=== PATIENT | female | born 1975 | race Hispanic/Latino ===

== ENCOUNTER 2019-12-28 00:09 | Emergency (ER) | payer BC ==
[~2019-12-28] VITALS: Ht 157.5 cm; Wt 81.6 kg
--- OUTSIDE RECORDS SUMMARY | 2019-12-28 00:11 | XMS REPORT | Clinical Summary ---
Author Author [facility] Address Unknown Phone Unavailable Care Team Providers Care Podiatry Doctor Name Role Phone Myah Hinson MD PCP Allergies Comments Active Allergy Reactions Severity Noted Date No Known Drug Allergies 01/05/2016 Medications End Date Status Medication Sig Dispensed Refills Start Date Active tiZANidine (ZANAFLEX) 2 TK 1 T PO TID 0 MG tablet FOR 14 DAYS 7 PRN Active traMADol-acetaminophen TK 1 T PO 0 01 (ULTRACET) 37.5-325 mg ONCE D PRN 7 per tablet Active metFORMIN (GLUCOPHAGE) Take 2 360 tablet 0 500 mg tabletIndications: tablets 7 PCOS (polycystic ovarian (1,000 mg syndrome) total) by mouth 2 (two) times a day. Active liraglutide (VICTOZA Inject 0.2 mL 6 pen 3 2-TOOTIE) 0.6 mg/0.1 mL (18 (1.2 mg 7 mg/3 mL) pen total) under injectorIndications: the skin Prediabetes daily. Active metFORMIN (GLUCOPHAGE) TAKE 2 360 tablet 0 500 mg tablet TABLETS BY 8 MOUTH TWICE DAILY Active Problems Problem Noted Date Prediabetes 03/20/2017 PCOS (polycystic ovarian syndrome) 03/20/2017 Vitamin D deficiency 03/20/2017 Back pain 03/20/2017 Cauda equina syndrome 03/20/2017 Osteoporosis 03/20/2017 Osteopenia 03/20/2017 Family History Medical History Relation Name Comments Ankylosing spondylitis Brother Diabetes Brother Diabetes Father Rheum arthritis Father Relation Name Status Comments Brother Father Alive Mother Alive Social History Date Tobacco Use Types Packs/Day Years Used Never Smoker Drinks/Week oz/Week Comments Alcohol Use occasional Yes Sex Assigned at Date Recorded Not on file Industry Job Start Date Occupation Not on file Not on file Not on file Travel End Travel History Travel Start No recent travel history available. Last Filed Vital Signs Not on file Plan of Treatment Health Maintenance Due Date Last Done Comments CERVICAL CANCER SCREENING 1995 INFLUENZA VACCINE 03/05/2020 Results Not on fileafter 12/27/2018 Insurance Type Payer Benefit Subscriber ID Effective Phone Address Plan / Dates Group HMO/PPO [facility] xxxxxxxxx [id number] THCARE resent CHOICE/CHO ICE + Advance Directives For more information, please contact: [phone] Patient Curing Press Maintainer Explanation Type Date Recorded Advance Directives, Living Will and Medical Power of Trim Operator
--- OUTSIDE RECORDS SUMMARY | 2019-12-28 00:11 | XMS REPORT | Continuity of Care Document ---
Author Author [employer]EDERICK [employer] Address Unknown Phone Unavailable Care Team Providers Care Licensing Officer Name Role Phone [employer] Unavailable Un available Problems Problem Status Onset Date Classification Date Reported Comments Source ROUTINE MAMMOGRAM//OSTEOPOROSIS SCREENIN Active 01/22/2019 [facility] Headache 11/27/2018 [facility] HTN Active 1 [facility] SCREENING Active 04/03/2017 [facility] M47.22 Active 02/26/2017 [facility] M54.5 Active 12/13/2015 [facility] UTERINE FIBROID Active 08/31/2014 [facility] PCOS (polycystic ovarian syndrome) Active Problem eCW: [facility] Alopecia areata Active Problem 04/22/2019 eCW: [facility] Lumbago Active Problem 04/22/2019 eCW: [facility] Body mass index 30.0-30.9, adult Active Problem eCW: [facility] Pain in right foot Active Diagnosis 03/21/2018 eCW: [facility] Obesity (BMI 30.0-34.9) Active Diagnosis 04/22/2019 eCW: [facility] Pain of left foot Active Diagnosis 03/21/2018 eCW: [facility] Eczema, unspecified type Active Diagnosis 03/05/2018 eCW: [facility] Body mass index 32.0-32.9, adult Active Problem eCW: [facility] Type 2 diabetes mellitus without complic ation, without long-term current use of insulin Active Problem 04/22/2019 eCW: [facility] Thoracic radiculopathy due to degenerati ve joint disease of spine Active Prob serina 04/22/2019 eCW: [facility] Amenorrhea Active Problem 04/22/2019 eCW: [facility] Cervical radiculopathy due to degenerati ve joint disease of spine Active Prob serina 04/22/2019 eCW: [facility] Metabolic syndrome Active Problem 04/22/2019 eCW: [facility] Insulin resistance Active Problem 04/22/2019 eCW: [facility] Body mass index 31.0-31.9, adult Active Problem eCW: [facility] Wellness examination Active Diagnosis 04/22/2019 eCW: [facility] Allergic rhinitis, cause unspecified Active Problem eCW: [facility] hypertriglyceridemia Active Problem 12/21/2015 eCW: [facility] Hypertension Active Problem 12/21/2015 eCW: [facility] lymphadenopathy Active Problem 12/21/2015 eCW: [facility] Constipation Active Problem 12/21/2015 eCW: [facility] hepatatis A Active Problem 12/21/2015 eCW: [facility] Abnormal liver enzymes Active Problem 12/21/2015 eCW: [facility] Overweight Active Problem 12/21/2015 eCW: [facility] hypercholesterolemia Active Problem 12/21/2015 eCW: [facility] Irregular menstrual cycle Acti ve Problem eCW: [facility] BMI 30.0-30.9,adult Active Problem 12/21/2015 eCW: [facility] Hypokalemia Active Problem 04/22/2019 eCW: [facility] Post-menopausal Active Problem 04/22/2019 eCW: [facility] Essential (primary) hypertension Active Problem [facility],eCW: [facility] Palpitation Active Problem 04/22/2019 eCW: [facility] Hospital discharge follow-up A ctive Diagnosis 1 eCW: [facility] Obesity Active Problem 12/21/2015 eCW: [facility] Body mass index 33.0-33.9, adult Active Diagnosis 0 04/22/2019 eCW: [facility] Cervicalgia 11/27/2018 [facility] Dorsalgia, unspecified 11/27/2018 [facility] Anxiety disorder, unspecified 11/27/2018 [facility] LOW BACK PAIN Active [facility] ENCNTR SCREEN MAMMOGRAM FOR MALIGNANT NE Active [facility] ASYMPTOMATIC MENOPAUSAL STATE Active [facility] Medications Medication Details Route Status Patient Instructions Ordering Provider Order Date Source Hydrochlorothiazide 12.5 MG / Lisinopril 10 MG Oral Tablet 1 tab, PO, Daily, # 30 tab, 0 Refill(s) Active 05/10/2018 [facility] Ketorolac 30 mg, Route: IVP, D rug form: INJ, ONCE, Dosing Weight 77.727, kg, Priority: STAT, Start date: 05/10/18 14:53:00 CDT, Stop date: 05/10/18 14:53:00 CDT Inactive 05/10/2018 [facility] Benadryl 25 mg, Route: IVP, ON CE, Dosing Weight 77.727, kg, Priority: STAT, Start date: 05/10/18 14:53:00 CDT, Stop date: 05/10/18 14:53:00 CDT Inactive 05/10/2018 [facility] Acetaminophen 975 mg, Route: P O, Drug form: TAB, ONCE, Dosing Weight 77.727, kg, Priority: STAT, Start date: 05/10/18 13:41:00 CDT, Stop date: 05/10/18 13:41:00 CDT Inactive 05/10/2018 [facility] Clonidine Hydrochloride 0.1 MG Oral Tablet 0.1 mg, Route: PO, Drug form: TAB, ONCE, Dosing Weight 77.727, kg, Priority: STAT, Start date: 05/10/18 13:41:00 CDT, Stop date: 05/10/18 13:41:00 CDT Inactive 05/10/2018 [facility] Clobetasol Propionate 1 applic ation to affected area Externally Active 0.05 % Externally Twice a day [facility] 03/03/2018 eCW: [facility] Tizanidine HCl 1 tablet as nee ded Orally Active 2 MG Orally Three times a day [facility] [place] 02/20/2017 eCW: [facility] Medrol (Sean) as directed Orally Active 4 MG Orally as directed in pack [facility] [place] 02/20/2017 eCW: [facility] Tramadol-Acetaminophen 1 table ts as needed Orally Active 37.5-325 MG Orally once a day [facility] [place] 02/20/2017 eCW: [facility] Etodolac 1 tablet Orally Active 400 MG Orally Once a da y, prn pain [facility] [place] 12/13/2015 eCW: [facility] Tizanidine HCl 1 tablet as nee ded Orally Active 2 MG Orally qhs [facility] [place] 12/13/2015 eCW: [facility] Medrol (Sean) as directed Orally Active 4 MG Orally as directed in pack [facility] [place] 12/13/2015 eCW: [facility] Keflex 1 capsule Orally Active 500 MG Orally Twice a d ay [facility] [place] 02/01/2015 eCW: [facility] Flonase 1 spray in each nostril Nasally Active 50 MCG/ACT Nasally Once a day [facility] 07/20/2013 eCW: [facility] Flonase 1 spray in each nostril Nasally Active 50 MCG/ACT Nasally Once a day [facility] [place] 07/20/2013 eCW: [facility] Vitamin D-3 1 capsule Orally Active 1000 UNIT Orally Once a day [place] eCW: [facility] Metformin HCl 1 tablet with me als Orally Active 1000 MG Orally Twice a day [facility] eCW: [facility] Vitamin D-3 1 capsule Orally Active 1000 UNIT Orally Once a day [facility] [place] eCW: [facility] Metformin HCl 1 tablet with me als Orally Active 1000 MG Orally Twice a day [facility] [place] eCW: [facility] Lisinopril-Hydrochlorothiazide 1 tablet Orally Active 10-12.5 MG Orally Once a day [facility] eCW: [facility] Aspir-81 1 tablet Orally Active 81 MG Orally Once a day [facility] eCW: [facility] Losartan Potassium-HCTZ 1 tabl et Orally Active 50-12.5 MG Orally Once a day [facility] eCW: [facility] Allergies, Adverse Reactions, Alerts Substance Category Reaction Severity Reaction type Status Date Reported Comments Source N.K.D.A. Adverse Reaction Info Not Available Adverse Reaction 04/20/2019 eCW: [facility] No Known Medication Allergies Assertion [facility] [place] Immunizations No Data Provided for This Section Results Order Name Results Value Reference Range Date Interpretation Comments Source ELECTROLYTES AGAP 15.4 10.0 - 20.0 05/10/2018 [facility] ELECTROLYTES eGFR 90 05/10/2018 Result Comment: The eGFR is calculated using the CKD-EPI formula. In most young, healthy individuals the eGFR will be >90 mL/min/1.73m2. The eGFR declines with age. An eGFR of 60-89 may be normal in some populations, particularly the elderly, for whom the CKD-EPI formula has not been extensively validated. Use of the eGFR is not recommended in the following populations:

Individuals with unstable creatinine concentrations, including patients and those with serious co-morbid conditions.

Patients with extremes in muscle mass or diet.

The data above are obtained from the National Kidney Disease Education Program (NKDEP) which additionally recommends that when the eGFR is used in patients with extremes of body mass index for purposes of drug dosing, the eGFR should be multiplied by the estimated BMI. [facility] ELECTROLYTES Creatinine Lvl 0.8 0 0.50 - 1.40 05/10/2018 [facility] ELECTROLYTES Calcium Lvl 9.6 8.5 - 10.5 05/10/2018 [facility] ELECTROLYTES Sodium Lvl 142 135 - 145 05/10/2018 [facility] ELECTROLYTES CO2 24 24 - 32 05/10/2018 [facility] ELECTROLYTES Chloride Lvl 106 95 - 109 05/10/2018 [facility] ELECTROLYTES Potassium Lvl 3.4 3.5 - 5.1 05/10/2018 [facility] ELECTROLYTES BUN 10 7 - 22 05/10/2018 [facility] ELECTROLYTES Glucose Lvl 156 70 - 99 05/10/2018 [facility] HEMATOLOGY MCH 28.6 27.0 - 31.0 05/10/2018 [facility] HEMATOLOGY RDW 13.4 11.5 - 14.5 05/10/2018 [facility] HEMATOLOGY MCHC 34.6 32.0 - 36.0 05/10/2018 [facility] HEMATOLOGY MPV 11.1 7.4 - 10.4 05/10/2018 [facility] HEMATOLOGY Platelet 220 133 - 450 05/10/2018 [facility] HEMATOLOGY RBC 5.23 4.20 - 5.40 05/10/2018 [facility] HEMATOLOGY Hgb 14.9 12.0 - 16.0 05/10/2018 [facility] HEMATOLOGY MCV 82.6 80.0 - 98.0 05/10/2018 [facility] HEMATOLOGY Hct 43.2 36.0 - 48.0 05/10/2018 [facility] HEMATOLOGY WBC 6.6 3.7 - 10.4 05/10/2018 [facility] Pathology Reports No Data Provided for This Section Diagnostic Reports Report Value Date Source Upper GI series DX Upper GI Se margot: 08/24/2019 8:28 [employer]ICE DISP[employer] CLINICAL INDICATION: 44 years Female GERD - GERD / . Fluoroscopy Time: 35 seconds with 1 additional acquired images (DAP 185) FINDINGS: The candy wrapping machine operator view of the chest and upper abdomen shows clear lungs and a normal bowel gas pattern. 2.2 cm right upper quadrant calcification likely due to a single large gallstone is noted. The patient was given thin liquid contrast material from the mouth. Swallowing is normal without aspiration. The esophagus is normal in caliber and shows normal motility and emptying. The stomach is normal in size and contour. There is slight thickening of the rugal folds. Contrast empties promptly into the duodenum. The ligament of Treitz lies in normal position. Gastroesophageal reflux occurred to the lower esophagus. No hiatal hernia noted. Impression: 1. Slightly thickened rugal folds sugges ting gastritis. Consider H. pylori testing. 2. Mild gastroesophageal reflux. 3. Single large gallstone. 08/24/2019 [facility] Bone Density DXA [employer] MA Study: Bone Density DXA [employer] MA Clinical Indication: - Z78.0 Asymptomatic menopausal state; osteoporosis screening Images of the axial lumbar spine and left hip have been performed using [employer] Discovery SL scanner. COMPARISON: None FINDINGS: The left hip bone mineral density is 101% of the peak reference bone mass with a T-score of 0.1. Left hip BMD is 0.951 g/cm2. Left femoral neck BMD is 0.817 g/cm2 and T-score of -0.3. The axial lumbar bone mineral density is 78% of the peak reference bone mass with a T-score of -2.1. Axial lumbar average BMD is 0.821 g/cm2. 10 year fracture risk with out prior fracture with prior fracture Major osteoporotic fracture 1.2% 2.3% Hip fracture <0.1% 0.1% IMPRESSION: 1. Normal bone mineral density of the le ft femoral neck. 2. Normal bone mineral density of the to emilee left hip. 3. Osteopenia of the lumbar spine. The World Health Organization has established that OSTEOPOROSIS occurs at -2.5 or more standard deviations (SD) below peak bone mass (T-score on the Hologic report). OSTEOPENIA (low bone mass) occurs at greater than -1.0 standard deviations to -2.5 standard deviations below peak bone mass. SL: [id number] 02/18/2019 [facility] Breast Mammo Scrn JANNY w tuan incl CAD MA BILATERAL DIGITAL SCREENING MAMMOGRAM 3D/2D WITH CAD: 02/18/2019 CLINICAL: /Z12.31 Encounter For Screening Mammogram For Malignant Neoplasm Of Breast. Current study was evaluated with a Computer Aided Detection (CAD) system. COMPARISON:Comparison is made to exams dated: 04/11/2017 mammogram and 11/30/2013 mammogram - [facility]. TECHNIQUE: Digital Breast Tomosynthesis was performed and utilized for Interpretation. [employer] Version 1.1 was utilized for computer aided detection. FINDINGS: There are scattered fibroglandular densities in both breasts. Bilateral silicone subpectoral breast implants are noted and imaged with routine and implant displaced views. Implants obscure breast parenchyma making mammographic interpretation difficult. No significant masses, calcifications, or other findings are seen in either breast. There has been no significant interval change. IMPRESSION: BENIGN RECOMMENDATION:There is no mammographic evidence of malignancy. A 1 year screening mammogram is recommended.(02/19/2020) This exam was interpreted at [id number] for [facility], [place] 12. Kailee Fox M.D. ap/penrad:02/18/2019 11:53:30 Slasher Machine Operator(s): Radha Smith, [facility] letter sent: BI-RADS 1/2 Mammogram BI-RADS: 2 Benign 02/18/2019 [facility] Brain wo contrast CT Brain wo contrast CT 05/10/2018 1:41 PM CDT HISTORY/INDICATIONS:43 years Female - headache/Hypertensive TECHNIQUE: Axial sections were obtained through the head Multiplanar reconstructions were obtained. Automatic exposure control was used as a CT dose reduction technique. CONTRAST: None DLP/mGy-cm: 698 COMPARISON: None FINDINGS: Brain Parenchyma: --Brain volume: Normal for age. --Cortical allison white juncture: Within n ormal limits. --White matter: Unremarkable. Ventricles: Normal Hemorrhage: None. Other intracranial findings: Negative.. Calvarium and skull base: Negative fracture. No evidence of significant scalp swelling. Visualized infra-cranial: --Mastoid air cells: Clear mastoid air c ells. --Middle ear/external auditory canal: Cl ear. --Paranasal sinuses: Clear. --Orbits: Normal. IMPRESSION: No CT evidence of acute intracranial abnormality [id number] 05/10/2018 [facility] Breast Mammo Scrn JANNY incl CAD MA - BREAST MAMMO SCRN JANNY INCL CAD MA BILATERAL DIGITAL SCREENING MAMMOGRAM WITH CAD WITH AUGMENTATION: 04/11/2017 CLINICAL: /Z12.31 Encounter For Screening Mammogram For Malignant Neoplasm Of Breast. Current study was evaluated with a Computer Aided Detection (CAD) system. Comparison is made to exam dated: 11/30/2013 mammogram - [facility]. Current study contains 10 films. There are scattered fibroglandular densities in both breasts. There is a benign appearing density in the right breast. Right retropectoral silicone implant is new and intact and has a smooth contour with a continuous wall. Implant may obscure breast parenchyma, making mammographic interpretation difficult. Left retropectoral breast implant is new and intact and has a smooth contour with a continuous wall. Implant may obscure breast parenchyma, making mammographic interpretation difficult. No significant masses, calcifications, or other findings are seen in either breast. IMPRESSION: BENIGN There is no mammographic evidence of malignancy. A 1 year screening mammogram is recommended. Beka Valenzuela sns/penrad:04/11/2017 14:16:16 Slasher Machine Operator: Lalita Rudd RT (R)(M), [facility] This exam was dictated and interpreted by [id number] for [facility], 12. letter sent: Bilateral Benign Mammogram BI-RADS: 2 Benign 04/11/2017 [facility] Spine lumbar series DX Patient Name: FREDERICK HEADLEY : 1975; Age: 40 years Female MR: [id number] Study: Spine lumbar series DX 12/13/2015 4:04 PM CDT Clinical Indication: M54.5 Low back pain. pt states she has had on and off back pain x 3 yrs. COMPARISON: None FINDINGS: Views: 5 Examination of the lumbar spine demonstrates five non rib bearing lumbar vertebral segments. There are no compression fractures. There is no spondylolisthesis. L5-S1 disc height loss. Mild L5 anterior spurring. The posterior elements, spinous processes are normal. The transverse processes are obscured by bowel gas. The paraspinal soft tissues are normal. The visualized sacroiliac joints are normal. If there is further concern, recommend follow-up radiographs or MRI for complete assessment. IMPRESSION: Mild L5-S1 disc height loss. SL: [id number] 12/13/2015 [facility] Pelvis w Pelvis Transvaginal US EXAM: Pelvic ultrasound HISTORY: Uterine fibroids. COMPARISON: None. TECHNIQUE: Transabdominal and transvaginal pelvic ultrasound FINDINGS: TRANSABDOMINAL PELVIC ULTRASOUND: The uterus has a lobular contour and measures approximate 8 cm length. Fibroids are visualized. The right ovary is seen. The left ovary is not visualized. The bladder is underdistended. TRANSVAGINAL PELVIC ULTRASOUND: Exam performed to better evaluate the ovaries and endometrium. Multiple ill-defined intramural fibroids are seen throughout the uterus, the largest fibroid measures approximately 4.1 cm in the lower anterior body. The endometrial stripe is partially obscured by the fibroids and measures 1.1 cm thickness. The cervix is unremarkable. The left and right ovaries are visualized with a 3.8 cm septated cyst in the right ovary. There may be a 1.4 cm paraovarian cyst on the left. No significant free fluid is seen. IMPRESSION: 1. Multiple uterine fibroids. 2. 3.8 cm complex cyst right ovary. Foll ow-up ultrasound can reevaluate. SL: 12 09/03/2014 [facility] Consultation Notes No Data Provided for This Section Discharge Summaries No Data Provided for This Section History and Physicals No Data Provided for This Section Vital Signs Vital Sign Value Date Comments Source Weight 182 04/20/2019 eCW: [facility] Height 62 0 04/20/2019 eCW: [facility] Diastolic (mm Hg) 88 04/20/2019 eCW: [facility] Systolic (mm Hg) 132 04/20/2019 eCW: [facility] Weight 176 05/19/2018 eCW: [facility] Height 62 1 eCW: [facility] Diastolic (mm Hg) 68 05/19/2018 eCW: [facility] Systolic (mm Hg) 110 05/19/2018 eCW: [facility] Temperature Oral (F) 98.3 F 05/10/2018 [facility] Heart Rate 86 05/10/2018 [facility] Systolic (mm Hg) 125 05/10/2018 [facility] Diastolic (mm Hg) 89 05/10/2018 [facility] Systolic (mm Hg) 155 05/10/2018 [facility] Diastolic (mm Hg) 103 05/10/2018 [facility] Systolic (mm Hg) 161 05/10/2018 [facility] Diastolic (mm Hg) 98 05/10/2018 [facility] Heart Rate 103 05/10/2018 [facility] Height 157.48 cm 05/10/2018 [facility] BMI Calculated 31.34 05/10/2018 [facility] Temperature Oral (F) 98.2 F 05/10/2018 [facility] Weight 77.727 05/10/2018 [facility] Respitory Rate 18 05/10/2018 [facility] Heart Rate 116 05/10/2018 [facility] Weight 176 03/17/2018 eCW: [facility] Height 62 0 03/17/2018 eCW: [facility] Diastolic (mm Hg) 84 03/17/2018 eCW: [facility] Systolic (mm Hg) 130 03/17/2018 eCW: [facility] Weight 179 03/03/2018 eCW: [facility] Height 62 0 03/03/2018 eCW: [facility] Diastolic (mm Hg) 88 03/03/2018 eCW: [facility] Systolic (mm Hg) 126 03/03/2018 eCW: [facility] Weight 168 02/20/2017 eCW: [facility] Height 62 0 02/20/2017 eCW: [facility] Diastolic (mm Hg) 78 02/20/2017 eCW: [facility] Systolic (mm Hg) 130 02/20/2017 eCW: [facility] Weight 170 12/13/2015 eCW: [facility] Height 62 0 12/13/2015 eCW: [facility] Diastolic (mm Hg) 80 12/13/2015 eCW: [facility] Systolic (mm Hg) 126 12/13/2015 eCW: [facility] Weight 165 02/01/2015 eCW: [facility] Height 62 0 02/01/2015 eCW: [facility] Diastolic (mm Hg) 82 02/01/2015 eCW: [facility] Systolic (mm Hg) 124 02/01/2015 eCW: [facility] Encounters Location Location Details Encounter Type Encounter Number Reason For Visit Attending Provider ADM Date DC Date Status Source [facility] Outpatient [id number] Christy Silva 5 09/04/2014 [facility] LUMP ON NECK FOR 3 DAYS--PAINFUL [id number] 02/01/2015 02/01/2015 eCW: [facility] LUMP ON NECK FOR 3 DAYS--PAINFUL [id number] 02/01/2015 02/01/2015 eCW: [facility] Practice [facility] Practice LUMP ON NECK FOR 3 DAYS--PAINFUL [id number] 02/01/2015 02/01/2015 eCW: [facility] Practice [facility] Unknown [id number] 02/03/20 15 02/02/2015 eCW: [facility] Practice [facility] Unknown [id number] 02/03/20 15 02/02/2015 eCW: [facility] Practice [facility] Unknown [id number] 02/03/20 15 02/02/2015 eCW: [facility] SEVERE BACK PAIN [id number] 12/13/19 16 12/13/2015 eCW: [facility] Outpatient [id number] Myah Sravan 12/13/2015 12/14/2015 [facility] Outpatient [id number] Chery Coffman 04/11/2017 04/12/2017 [facility] [id number] Travis Loja 05/10/2018 05/10/2018 [facility] Outpatient [id number] Christy Silva 9 02/19/2019 [facility] - [facility] [id number] Paul Jovel 08/24/2019 08/25/2019 [facility] Procedures Procedure Code Date Perfomer Comments Source Breast augmentation [id number] 08/05/2015 [facility] Uterine fibroidectomy [id number] 08/05/2014 [facility] [place] Assessment and Plan No Data Provided for This Section Plan of Care No Data Provided for This Section Social History Social History Date Source Social History TypeResponse Alcohol Current, Type Beer, Wine, Liquor. Frequency: 1-2 times per month. Smoking Status Never smoker; Exposure to Tobacco Smoke None; Cigarette Smoking Last 365 Days No; Reg Smoking Cessation Counseling No entered on: 05/10/18 05/10/2018 [facility] Social History TypeResponse Alcohol Current, Type Beer, Wine, Liquor. Frequency: 1-2 times per month. Smoking Status Never smoker; Exposure to Tobacco Smoke None; Cigarette Smoking Last 365 Days No; Reg Smoking Cessation Counseling No entered on: 05/10/18 05/10/2018 [facility] [place] Social History TypeResponse Alcohol Current, Type Beer, Wine, Liquor. Frequency: 1-2 times per month. Smoking Status Never smoker; Exposure to Tobacco Smoke None; Cigarette Smoking Last 365 Days No; Reg Smoking Cessation Counseling No entered on: 05/10/18 05/10/2018 [facility] Social History ElementQualifiersDate Rep orted Exercisie . Do you exercise? Yes, Type of exercis e? Walking December 13, 2015 Sexual Activity . Yes December 13, 2015 Smoking no. Are you a: Never Smoker December 13, 2015 Drug Use no. Do you use recreational drugs? No December 13, 2015 Diet . Are you on a diet? No December 13, 2015 Caffeine no. Do you drink caffeine? No December 13, 2015 Alcohol yes. Do you drink alcohol? Yes December 13, 2015 Marital Status . December 13, 2015 Employment . Employed December 13, 2015 12/13/2015 [employer]: [employer] Family History No Data Provided for This Section Advance Directives No Data Provided for This Section Functional Status No Data Provided for This Section
--- OUTSIDE RECORDS SUMMARY | 2019-12-28 00:11 | XMS REPORT ---
Author Author Katja Hinson Organization [employer] Address Unknown Phone Unavailable Care Team Providers Care Ceo & Co Founder Name Role Phone Myah Hinson Unavailable Allergies, Adverse Reactions, Alerts Substance Reaction Event Type N.K.D.A. Info Not Available Non Drug Allergy Problems Problem Type Condition Code Onset Dates Condition Statu s Problem PCOS (polycystic ovarian syndrome) E28.2 Active Problem Lumbago M54.5 Active Problem Body mass index 31.0-31.9, adult Z68.31 Active Problem Amenorrhea N91.2 Active Assessment Obesity (BMI 30.0-34.9) E66.9 Acti ve Problem Type 2 diabetes mellitus wit hout complication, without long-term current use of insulin E11.9 Active Assessment Body mass index 30.0-30.9, adult Z68.30 Active Problem Cervical radiculopathy due to degenerati ve joint disease of spine M47.22 Active Problem Alopecia areata L63.9 Active Problem Thoracic radiculopathy due to degenerati ve joint disease of spine M47.24 Active Problem Obesity (BMI 30.0-34.9) E66.9 Acti ve Problem Body mass index 30.0-30.9, adult Z68.30 Active Assessment Alopecia areata L63.9 Active Assessment Insulin resistance E88.81 Active Assessment Type 2 diabetes mellitus wit hout complication, without long-term current use of insulin E11.9 Active Assessment Metabolic syndrome E88.81 Active Assessment Thoracic radiculopathy due to degenerati ve joint disease of spine M47.24 Active Assessment Cervical radiculopathy due to degenerati ve joint disease of spine M47.22 Active Assessment Amenorrhea N91.2 Active Problem Metabolic syndrome E88.81 Active Assessment PCOS (polycystic ovarian syndrome) E28.2 Active Problem Insulin resistance E88.81 Active Medications Medication Code System Code Instructions Start Date End Date Status Dosage Flonase [facility] [address]-23 50 MCG/ACT Nasally Once a day Jul 20, 2013 Active 1 spray in each nostril Vitamin D-3 [facility] 87354-[address] 1000 UNIT Orally Once a day Active 1 capsule Tizanidine HCl [facility] [address]-21 2 MG Orally Three times a day February 20, 2017 Mar 06, 2017 Active 1 tablet as needed Medrol (Sean) NDC 0 4 MG Orally as directed in pack February 20, 2017 February 25, 2017 Active as directed Tramadol-Acetaminophen [facility] [address]-50 37.5-325 MG Orall y once a day February 20, 2017 Mar 22, 2017 Active 1 tablets as needed Metformin HCl [facility] [address]-48 1000 MG Orally Twice a day Active 1 tablet with meals Vital Signs Date/Time: February 20, 2017 BMI 30.72 Index Weight 168 lbs Height 62 in Pulse 78 /min Blood Pressure Diastolic 78 mm Hg Blood Pressure Systolic 130 mm Hg Results Name Result Date Reference Range Unit Abnormali ty Flag T3 Total- ----T3 Total 1.15 [id number] 0.60-1.81 ng/mL REJI Ab (Antinuclear Antibody) ----REJI Negative 20170220 Negative Vitamin D 1,25-Dihydroxy ----Vitamin D 1,25 (OH)2 Total 84 99983915 pg/mL ----Vitamin D2 1,25 (OH)2 10 70173206 pg/mL ----Vitamin D3 1,25 (OH)2 74 32259224 pg/mL ATPO (Thyroid Peroxidase (TPO) Antibody) ----TPO Ab 39 [id number] <=60 IU/mL Summary Purpose eClinicalWorks Submission
--- OUTSIDE RECORDS SUMMARY | 2019-12-28 00:12 | XMS REPORT ---
Author Katja Uriostegui Organization [employer] Address Unknown Phone Unavailable Care Team Providers Care Quilt Stuffer Name Role Phone Chana Borrero CP Unavailable Allergies, Adverse Reactions, Alerts Substance Reaction Event Type N.K.D.A. Info Not Available Non Drug Allergy Problems Problem Type Condition Code Onset Dates Condition Statu s Problem Alopecia areata L63.9 Active Problem Cervical radiculopathy due to degenerati ve joint disease of spine M47.22 Active Problem Thoracic radiculopathy due to degenerati ve joint disease of spine M47.24 Active Problem Hypokalemia E87.6 Active Assessment Body mass index 33.0-33.9, adult Z68.33 Active Problem Palpitation R00.2 Active Problem Body mass index 33.0-33.9, adult Z68.33 Active Problem Body mass index 32.0-32.9, adult Z68.32 Active Problem Type 2 diabetes mellitus wit hout complication, without long-term current use of insulin E11.9 Active Problem Essential (primary) hypertension I10 Active Problem Post-menopausal Z78.0 Active Problem Lumbago M54.5 Active Assessment Obesity (BMI 30.0-34.9) E66.9 Acti ve Assessment Wellness examination Z00.00 Active Problem Metabolic syndrome E88.81 Active Problem Body mass index 30.0-30.9, adult Z68.30 Active Problem Insulin resistance E88.81 Active Problem Amenorrhea N91.2 Active Problem PCOS (polycystic ovarian syndrome) E28.2 Active Problem Obesity (BMI 30.0-34.9) E66.9 Acti ve Medications Medication Code System Code Instructions Start Date End Date Status Dosage Flonase [facility] 05550456750 50 MCG/ACT Nasally Once a day Jul 20, 2013 Active 1 spray in each nostril Losartan Potassium-HCTZ [facility] 37371000950 50-12.5 MG Orally Once a day Active 1 tablet Vitamin D-3 [facility] 09380210932 1000 UNIT Orally Once a day Active 1 capsule Metformin HCl NDC 40616305206 1000 MG Orally Twice a day Active 1 tablet with meals Lisinopril-Hydrochlorothiazide [facility] 41095942887 10-12.5 MG Orally Once a day Active 1 tablet Aspir-81 [facility] 29703299937 81 MG Orally Once a day Act angelica 1 tablet Vital Signs Date/Time: Apr 20, 2019 BMI 33.28 Index Weight 182 lbs Height 62 in Pulse 70 /min Blood Pressure Diastolic 88 mm Hg Blood Pressure Systolic 132 mm Hg Results No Known Results Summary Purpose eClinicalWorks Submission
--- OUTSIDE RECORDS SUMMARY | 2019-12-28 00:12 | XMS REPORT ---
Author Katja Uriostegui Organization [employer] Address Unknown Phone Unavailable Care Team Providers Care Paper Coating Machine Operator Name Role Phone Chana Borrero CP Unavailable Allergies, Adverse Reactions, Alerts Substance Reaction Event Type N.K.D.A. Info Not Available Non Drug Allergy Problems Problem Type Condition Code Onset Dates Condition Statu s Problem PCOS (polycystic ovarian syndrome) E28.2 Active Problem Alopecia areata L63.9 Active Problem Lumbago M54.5 Active Problem Body mass index 30.0-30.9, adult Z68.30 Active Problem Obesity (BMI 30.0-34.9) E66.9 Acti ve Problem Body mass index 32.0-32.9, adult Z68.32 Active Problem Type 2 diabetes mellitus wit hout complication, without long-term current use of insulin E11.9 Active Problem Thoracic radiculopathy due to degenerati ve joint disease of spine M47.24 Active Problem Amenorrhea N91.2 Active Problem Cervical radiculopathy due to degenerati ve joint disease of spine M47.22 Active Assessment Body mass index 32.0-32.9, adult Z68.32 Active Assessment Pain of left foot M79.672 Active Assessment Wellness examination Z00.00 Active Assessment Obesity (BMI 30.0-34.9) E66.9 Acti ve Problem Metabolic syndrome E88.81 Active Assessment Pain in right foot M79.671 Active Problem Insulin resistance E88.81 Active Medications Medication Code System Code Instructions Start Date End Date Status Dosage Metformin HCl ND 59075776841 1000 MG Orally Twice a day Active 1 tablet with meals Vitamin D-3 [facility] 29148496626 1000 UNIT Orally Once a day Active 1 capsule Clobetasol Propionate [facility] 74920875535 0.05 % Externally T wice a day March 03, 2018 Mar 23, 2018 Active 1 application to aff ected area Flonase ND 77524937385 50 MCG/ACT Nasally Once a day Jul 20, 2013 Active 1 spray in each nostril Vital Signs Date/Time: Mar 17, 2018 BMI 32.19 Index Weight 176 lbs Height 62 in Pulse 78 /min Blood Pressure Diastolic 84 mm Hg Blood Pressure Systolic 130 mm Hg Results No Known Results Summary Purpose [employer]ClinicalWorks Submission
--- OUTSIDE RECORDS SUMMARY | 2019-12-28 00:12 | XMS REPORT | Summary of Care ---
Author Organization Unknown Address Unknown Phone Unavailable Encounter [facility] Imanir_ileana(FESTUS) [id number] Date(s): 09/03/14 - 09/03/[address] Discharge Disposition: Home Physician Attending: Christy Silva MD Physician_Referring: Christy iSlva MD Reason for Visit UTERINE FIBROID Problem List No data available for this section Allergies, Adverse Reactions, Alerts No data available for this section Medications No data available for this section Medications Administered During Your Visit No data available for this section Immunizations No data available for this section
--- OUTSIDE RECORDS SUMMARY | 2019-12-28 00:12 | XMS REPORT ---
Author Author Katja Hinson Organization [employer] Address Unknown Phone Unavailable Care Team Providers Care Assistant Store Manager Trainee Name Role Phone Myah Hinson Unavailable Allergies No Known Allergies Problems Problem Type Condition Code Onset Dates Condition Statu s Problem Alopecia areata L63.9 Active Problem Amenorrhea N91.2 Active Problem Thoracic radiculopathy due to degenerati ve joint disease of spine M47.24 Active Problem Hypokalemia E87.6 Active Problem Essential (primary) hypertension I10 Active Problem Palpitation R00.2 Active Problem Body mass index 30.0-30.9, adult Z68.30 Active Problem Obesity (BMI 30.0-34.9) E66.9 Acti ve Problem Post-menopausal Z78.0 Active Problem Body mass index 32.0-32.9, adult Z68.32 Active Problem PCOS (polycystic ovarian syndrome) E28.2 Active Problem Lumbago M54.5 Active Problem Metabolic syndrome E88.81 Active Problem Type 2 diabetes mellitus wit hout complication, without long-term current use of insulin E11.9 Active Problem Insulin resistance E88.81 Active Problem Cervical radiculopathy due to degenerati ve joint disease of spine M47.22 Active Medications No Known Medications Results No Known Results Summary Purpose eClinicalWorks Submission
--- OUTSIDE RECORDS SUMMARY | 2019-12-28 00:12 | XMS REPORT ---
Author Author Katja Hinson Organization [employer] Address Unknown Phone Unavailable Care Team Providers Care Housekeeping Assistant Name Role Phone Myah Hinson Unavailable Allergies, Adverse Reactions, Alerts Substance Reaction Event Type N.K.D.A. Info Not Available Non Drug Allergy Encounters Encounter Location Date LUMP ON NECK FOR 3 DAYS--PAINFUL [facility] February 01, 2015 Unknown [facility] February 02, 2015 SEVERE BACK PAIN [facility] December 13, 2015 Problems Problem Type Condition ICD-9 Code Onset Dates Condition Statu s Problem Irregular menstrual cycle 626.4 Ac tive Problem hepatatis A 070.1 Active Problem lymphadenopathy 785.6 Active Problem Obesity E66.9 Active Assessment Obesity E66.9 Active Problem Body mass index 31.0-31.9, adult Z68.31 Active Assessment Body mass index 31.0-31.9, adult Z68.31 Active Problem Lumbago M54.5 Active Problem Metabolic syndrome E88.81 Active Problem Abnormal liver enzymes 790.5 Activ e Problem PCOS (polycystic ovarian syndrome) E28.2 Active Problem Insulin resistance E88.81 Active Assessment Lumbago M54.5 Active Problem Constipation 564.00 Active Assessment Metabolic syndrome E88.81 Active Assessment PCOS (polycystic ovarian syndrome) E28.2 Active Problem hypertriglyceridemia 272.1 Active Problem hypercholesterolemia 272.0 Active Problem Allergic rhinitis, cause unspecified 477.9 Active Problem Overweight 278.02 Active Problem Hypertension 401.1 Active Problem BMI 30.0-30.9,adult V85.30 Active Medications Medication Code System Code Instructions Start Date End Date Status Dosage Etodolac [facility] [address]-30 400 MG Orally Once a day, prn madhavi n December 13, 2015 January 12, 2016 Active 1 tablet Metformin HCl [facility] [address]-47 1000 MG Orally Twice a day Active 1 tablet with meals Flonase [facility] [address]-95 50 MCG/ACT Nasally Once a day Jul Active 1 spray in each nostril Tizanidine HCl [facility] [address]-51 2 MG Orally qhs December 13, 2015 Ma y 2015 Active 1 tablet as needed Vitamin D-3 [facility] 76[address] 1000 UNIT Orally Once a day Active 1 capsule Medrol (Sean) [facility] [address]-15 4 MG Orally as directed in pack December 13, 2015 December 18, 2015 Active as directed Social History Social History Element Qualifiers Date Reported Exercisie . Do you exercise? Yes, Type of exercis e? Walking December 13, 2015 Sexual Activity . Yes December 13, 2015 Smoking no. Are you a: Never Smoker December 12 6 Drug Use no. Do you use recreational drugs? No 2015 Diet . Are you on a diet? No December 13, 2015 Caffeine no. Do you drink caffeine? No December 12 016 Alcohol yes. Do you drink alcohol? Yes December 13, 2015 Marital Status . December 13, 2015 Employment . Employed December 13, 2015 Vital Signs Date/Time: December 13, 2015 Weight 170 lbs Height 62 in Blood Pressure Diastolic 80 mm Hg Blood Pressure Systolic 126 mm Hg Summary Purpose eClinicalWorks Submission
--- OUTSIDE RECORDS SUMMARY | 2019-12-28 00:12 | XMS REPORT ---
Author Author [facility] t Organization [facility] Address [address] [place] [address] Phone Unavailable Care Team Providers Care Corporate Strategy Analyst Name Role Phone Lucho Wells MD PCP Dom Jovel Attphys Christy Silva Attphys Izaiah Loja Attphys Christy Leon Attphys Lucho Wells Attphys Problems Condition Name Condition Details Condition Category Status Onset Date Resolution Date Last Treatment Date Treating Clinician Comments Source ROUTINE MAMMOGRAM//OSTEOPOROSIS SCREENIN ROUTINE MAMMOGRAM//OSTEOPOROSIS SCREENIN Active 01/22/2019 [facility] Diagnosis Active 2019-01-22 00:00:00 2019-02-18 10:34:00 [facility] HTN HTN Active 05/10/2018 [facility] Diagnosis Active 2018-05-10 00:00:00 2018-05-18 08:26:00 [facility] SCREENING SCRE ENING Active 04/03/2017 [facility] Diagnosis Active 2017-04-03 00:00:00 2017-04-11 14:37:00 [facility] Prediabetes Prediabetes Disease Active 2017-03-20 00:00:00 Alan Rodríguez PCOS (polycystic ovarian syndrome) PCOS (polycystic ovarian synd deonna) Disease Active 2017-03-20 00:00:00 [facility] Vitamin D deficiency Vitamin D deficiency Disease Active 00:00:00 Alan Rodríguez Back pain Back pain Disease Active 2017-03-20 00:00:00 Alan Rodríguez Cauda equina syndrome Cauda equina syndrome Disease Active 201 02-10-16 00:00:00 Alan Hernandez t Osteoporosis Osteoporosis Disease Active 2017-03-20 00:00:00 Alan Rodríguez Osteopenia Osteopenia Disease Active 2017-03-20 00:00:00 Alan Mckayist M47.22 M47. 22 Active 02/26/2017 [facility] Diagnosis Active 2017-02-26 00:00:00 2017-04-08 15:19:00 [facility] M54.5 M54. 5 Active 12/13/2015 [facility] Diagnosis Active 2015-12-13 00:00:00 2015-12-13 16:17:00 [facility] UTERINE FIBROID UTER INE FIBROID Active 08/31/2014 [facility] Diagnosis Active 2014-08-31 00:00:00 2014-09-03 15:22:00 [facility] PCOS (polycystic ovarian syndrome) PCOS (polycystic ovarian syndrome) Active Problem 04/22/2019 eCW: [facility] Problem Active 2019-04-22 02:01:02 eCW: [facility] Alopecia areata Alop ecia areata Active Problem 04/22/2019 eCW: [facility] Problem Active 2019-04-22 02:01:02 eCW: [facility] Lumbago Lumb ago Active Problem 04/22/2019 eCW: [facility] Problem Active 2019-04-22 02:01:02 e CW: [facility] Body mass index 30.0-30.9, adult Body mass index 30.0- 30.9, adult Active Problem 04/22/2019 eCW: [facility] Problem Active 2019-04-22 02:01:02 eCW: [facility] Pain in right foot Pain in right foot Active Diagnosis 03/21/2018 eCW: [facility] Diagnosis Active 2017 02:03:13 eCW: [facility] Obesity (BMI 30.0-34.9) Obes ity (BMI 30.0-34.9) Active Diagnosis 04/22/2019 eCW: [facility] Diagnosis Active 2019-04-22 02:01:02 eCW: [facility] ractice Pain of left foot Pain of left foot Active Diagnosis 03/21/2018 eCW: [facility] Diagnosis Active 2017 02:03:13 eCW: [facility] Eczema, unspecified type Ecze ma, unspecified type Active Diagnosis 03/05/2018 eCW: [facility] Diagnosis Active 2018-03-05 02:04:41 eCW: [facility] Madhu almanzazelda Body mass index 32.0-32.9, adult Body mass index 32.0- 32.9, adult Active Problem 04/22/2019 eCW: [facility] Problem Active 2019-04-22 02:01:02 eCW: [facility] Type 2 diabetes mellitus without complic ation, without long-term current use of insulin Type 2 diabetes mellitus without complication, without long-term current use of insulin Active Problem 04/22/2019 eCW: [facility] Problem Active 2019-04-22 02:01:02 eCW: [facility] Thoracic radiculopathy due to degenerative joint disea se of spine Thoracic radiculopathy due to degenerative joint disease of spine Active Problem 04/22/2019 eCW: [facility] Problem Active 2019-04-22 02:01:02 eCW: [facility] Madhu almanzazelda Amenorrhea Amen orrhea Active Problem 04/22/2019 eCW: [facility] Problem Active 2019-04-22 02:01:02 eCW: [facility] Cervical radiculopathy due to degenerative joint disea se of spine Cervical radiculopathy due to degenerative joint disease of spine Active Problem 04/22/2019 eCW: [facility] Problem Active 2019-04-22 02:01:02 eCW: [facility] Madhu almanzazelda Metabolic syndrome [place] bolic syndrome Active Problem 04/22/2019 eCW: [facility] Problem Active 2019-04-22 0 2:01:02 eCW: [facility] Body mass index 31.0-31.9, adult Body mass index 31.0- 31.9, adult Active Problem 02/28/2017 eCW: [facility] Problem Active 2017-02-28 02:01:21 eCW: [facility] Wellness examination Well ness examination Active Diagnosis 04/22/2019 eCW: [facility] Diagnosis Active 2019-04-22 02:01:02 eCW: [facility] Madhu almanzazelda Allergic rhinitis, cause unspecified Allergic rhinitis, cause unspecified Active Problem 12/21/2015 eCW: [facility] Problem Active 2015-12-21 02:15:33 eCW: [facility] hypertriglyceridemia hype rtriglyceridemia Active Problem 12/21/2015 eCW: [facility] Problem Active 2015-12-21 02:15:33 eCW: [facility] Hypertension Hype rtension Active Problem 12/21/2015 eCW: [facility] Problem Active 2015-12-21 02:15:33 eCW: [facility] lymphadenopathy lymp hadenopathy Active Problem 12/21/2015 eCW: [facility] Problem Active 2015-12-21 02:15:33 eCW: [facility] Constipation Cons tipation Active Problem 12/21/2015 eCW: [facility] Problem Active 2015-12-21 02:15:33 eCW: [facility] hepatatis A hepa lisa A Active Problem 12/21/2015 eCW: [facility] Problem Active 2015-12-21 02:15:33 eCW: [facility] Abnormal liver enzymes Abno rmal liver enzymes Active Problem 12/21/2015 eCW: [facility] Problem Active 2015-12-21 02:15:33 eCW: [facility] Overweight Over weight Active Problem 12/21/2015 eCW: [facility] Problem Active 2015-12-21 02:15:33 eCW: [facility] hypercholesterolemia hype rcholesterolemia Active Problem 12/21/2015 eCW: [facility] Problem Active 2015-12-21 02:15:33 eCW: [facility] Irregular menstrual cycle Irre gular menstrual cycle Active Problem 12/21/2015 eCW: [facility] Problem Active 2015-12-21 02:15:33 eCW: [facility] BMI 30.0-30.9,adult BMI 30.0-30.9,adult Active Problem 12/21/2015 eCW: [facility] Problem Active 2015-12-21 0 2:15:33 eCW: [facility] Hypokalemia Hypo kalemia Active Problem 04/22/2019 eCW: [facility] Problem Active 2019-04-22 02:01:02 eCW: [facility] Post-menopausal Post -menopausal Active Problem 04/22/2019 eCW: [facility] Problem Active 2019-04-22 02:01:02 eCW: [facility] Essential (primary) hypertension Essential (primary) hypertension Active Problem 04/22/2019 [facility],eCW: [facility] Problem Active 2019-04-22 02:01:[address] [facility], eCW: [facility] Palpitation Palp itation Active Problem 04/22/2019 eCW: [facility] Problem Active 2019-04-22 02:01:02 eCW: [facility] Hospital discharge follow-up H ospital discharge follow- up Active Diagnosis 05/21/2018 eCW: [facility] Diagnosis Active 2018-05-21 02:04:14 eCW: [facility] ractice Obesity Obes ity Active Problem 12/21/2015 eCW: [facility] Problem Active 2015-12-21 02:15:33 e CW: [facility] Body mass index 33.0-33.9, adult Body mass index 33.0- 33.9, adult Active Diagnosis 04/22/2019 eCW: [facility] Diagnosis Active 2019-04-22 02:01:02 eCW: [facility] Cervicalgia Cerv icalgia 11/27/2018 [facility] Problem 2018-11-27 12:51:46 [facility] Dorsalgia, unspecified Dors algia, unspecified 11/27/2018 [facility] Problem 2018-11-27 12:51:46 [facility] Anxiety disorder, unspecified Anxiety disorder, unspecified 11/27/2018 [facility] Problem 12:51:46 [facility] LOW BACK PAIN LOW BACK PAIN Active [facility] Diagnosis Active 2015-12-13 16:17:00 [facility] ENCNTR SCREEN MAMMOGRAM FOR MALIGNANT NE ENCNTR SCREEN MAMMOGRAM FOR MALIGNANT NE Active [facility] Diagnosis Active 2019-02-18 10:34:00 [facility] ASYMPTOMATIC MENOPAUSAL STATE ASYMPTOMATIC MENOPAUSAL STATE Active [facility] Diagnosis Active 2018 10:34:00 [facility] Headache Head ache 05/10/2018 11/27/2018 [facility] Problem 2018-05-10 05:00:00 2018-11-27 12:51:46 2018-11-27 12:51:46 [facility] Allergies, Adverse Reactions, Alerts Allergy Name Allergy Type Status Severity Reaction(s) Onset Date Inacti ve Date Treating Clinician Comments Source N.BiunA. N.Wali. Active Info Not Available 2019-04-20 00:00:00 [facility] No Known Medication Allergies No Known Medication Allergies Active [facility] Family History Family Member Diagnosis Comments Start Date Stop Date Source Natural brother Ankylosing spondylitis [facility] Natural brother Diabetes Alan M ethodist Natural father Diabetes Alan Me thodist Natural father Rheum arthritis [facility] Social History Social Habit Start Date Stop Date Quantity Comments Source Sex Assigned [facility] Social History 2018-05-10 18:30:16 2018-05-10 18:30:16 [facility] Alcohol intake 2017-03-20 00:00:00 2017-03-20 00:00:00 Current drinker of alcohol (finding) Alan Rodríguez Alcohol Comment 2016-01-05 00:00:00 2016-01-05 00:00:00 occasional [place] [facility] Exercisie 2015-12-13 00:00:00 2015-12-13 00:00:00 [facility] Smoking Status Start Date Stop Date Source Never smoker [place] t Medications Ordered Medication Name Filled Medication Name Start Date Stop Da te Current Medication? Ordering Clinician Indication Dosage Frequency Signature (SIG) Comments Components Source Vitamin D-3 2019-04-22 02:01:02 Yes Chana Borrero 1 capsule eCW: [facility] Metformin HCl 2019-04-22 02:01:02 Yes Chana Borrero 1 tablet with meals eCW: [facility] Lisinopril-Hydrochlorothiazide 2019-04-22 02:01:02 Yes Donna Borrero 1 tablet eCW: [facility] ractice Aspir-81 2019-04-22 02:01:02 Yes Chana Borrero 1 ta blet eCW: [facility] Losartan Potassium-HCTZ 2019-04-22 02:01:02 Yes Chana Borrero 1 tablet eCW: [facility] Hydrochlorothiazide 12.5 MG / Lisinopril 10 MG Oral Tablet 2018-05-10 21:18:00 Yes 1 tab, PO, Daily, # 30 tab, 0 R efill(s) [facility] Ketorolac 2018-05-10 19:53:00 No 30 mg, Route: IVP, Drug form: INJ, ONCE, Dosing Weight 77.727, kg, Priority: STAT, Start date: 05/10/18 14:53:00 CDT, Stop date: 05/10/18 14:53:00 CDT [facility] Benadryl 2018-05-10 19:53:00 No 25 mg, Route: IVP, ONCE, Dosing Weight 77.727, kg, Priority: STAT, Start date: 05/10/18 14:53:00 CDT, Stop date: 05/10/18 14:53:00 CDT [facility] Acetaminophen 2018-05-10 18:41:00 No 975 mg, Route: PO, Drug form: TAB, ONCE, Dosing Weight 77.727, kg, Priority: STAT, Start date: 05/10/18 13:41:00 CDT, Stop date: 05/10/18 13:41:00 CDT [facility] Clonidine Hydrochloride 0.1 MG Oral Tablet 2018-05-10 18:41:00 No 0.1 mg, Route: PO, Drug form: TAB, ONCE, Dosing Weight 77.727, kg, Priority: STAT, Start date: 05/10/18 13:41:00 CDT, Stop date: 05/10/18 13:41:00 CDT [facility] Clobetasol Propionate 2018-03-03 00:00:00 Yes Chana Mina s 1 application to affected area eCW: [facility] metFORMIN (GLUCOPHAGE) 500 mg tablet 2017-10-02 00:00:00 Ye s TAKE 2 TABLETS BY MOUTH TWICE DAILY Alan gerard liraglutide (VICTOZA 2-TOOTIE) 0.6 mg/0.1 mL (18 mg/3 mL) pen i njector 2017-04-26 00:00:00 Yes Prediabetes 1.2mg QD Inject 0 .2 mL (1.2 mg total) under the skin daily. Alan Rodríguez metFORMIN (GLUCOPHAGE) 500 mg tablet 2017-03-20 00:00:00 Yes PCOS (polycystic ovarian syndrome) 1000mg Q.5D Take 2 tab lets (1,000 mg total) by mouth 2 (two) times a day. Alan boswell traMADol-acetaminophen (ULTRACET) 37.5-325 mg per tablet 2017-03-04 00:00:00 Yes TK 1 T PO ONCE D PRN Alan Rodríguez Vitamin D-3 2017-02-28 02:01:21 Yes Ann Ahmed 1 capsule eCW: [facility] Metformin HCl 2017-02-28 02:01:21 Yes Ann Ahmed 1 tablet with meals eCW: [facility] ractice tiZANidine (ZANAFLEX) 2 MG tablet 2017-02-20 00:00:00 Yes TK 1 T PO TID FOR 14 DAYS PRN Alan Rodríguez Tizanidine HCl 2017-02-20 00:00:00 Yes Ann Ahmed 1 tablet as needed eCW: [facility] ractice Medrol (Tootie) 2017-02-20 00:00:00 Yes Ann Singhmed as directed eCW: [facility] Tramadol-Acetaminophen 2017-02-20 00:00:00 Yes Ann Ah med 1 tablets as needed eCW: [facility] ractice Etodolac 2015-12-13 00:00:00 Yes Ann Singhmed 1 t ablet eCW: [facility] Tizanidine HCl 2015-12-13 00:00:00 Yes Ann Ahmed 1 tablet as needed eCW: [facility] ractice Medrol (Tootie) 2015-12-13 00:00:00 Yes Ann Singhmed as directed eCW: [facility] Keflex 2015-02-01 00:00:00 Yes Ann Singhmed 1 cap marcus eCW: [facility] Flonase 2013-07-20 00:00:00 Yes Chana Borrero 1 spray in each nostril [facility] 2013-07-20 00:00:00 Yes Ann Wells 1 spray in each nostril eCW: [facility] Vital Signs Vital Name Observation Time Observation Value Comments Source Weight 2019-04-20 16:15:00 eCW: [facility] Height 2019-04-20 16:15:00 eCW: [facility] Diastolic (mm Hg) 2019-04-20 16:15:00 eCW : [facility] Systolic (mm Hg) 2019-04-20 16:15:00 eCW: [facility] Weight 2018-05-19 20:30:00 eCW: [facility] Height 2018-05-19 20:30:00 eCW: [facility] Diastolic (mm Hg) 2018-05-19 20:30:00 [facility] : [facility] Systolic (mm Hg) 2018-05-19 20:30:00 [facility]: [facility] Temperature Oral (F) 2018-05-10 22:02:00 98.3 F [facility] Heart Rate 2018-05-10 22:02:00 [facility] Systolic (mm Hg) 2018-05-10 22:02:[address] [facility] Diastolic (mm Hg) 2018-05-10 22:02:00 [facility] Systolic (mm Hg) 2018-05-10 21:20:[address] [facility] Diastolic (mm Hg) 2018-05-10 21:20:00 [facility] Systolic (mm Hg) 2018-05-10 20:24:[address] [facility] Diastolic (mm Hg) 2018-05-10 20:24:00 [facility] Heart Rate 2018-05-10 19:17:00 [facility] Height 2018-05-10 18:23:00 157.48 cm [facility] BMI Calculated 2018-05-10 18:23:00 [facility] Temperature Oral (F) 2018-05-10 18:23:00 98.2 F [facility] Weight 2018-05-10 18:23:00 [facility] Respitory Rate 2018-05-10 18:23:00 [facility] Heart Rate 2018-05-10 18:23:00 [facility] Weight 2018-03-17 13:45:00 eCW: [facility] Height 2018-03-17 13:45:00 eCW: [facility] Diastolic (mm Hg) 2018-03-17 13:45:00 eCW : [facility] Systolic (mm Hg) 2018-03-17 13:45:00 e[facility]: [facility] Weight 2018-03-03 20:30:00 eCW: [facility] Height 2018-03-03 20:30:00 eCW: [facility] Diastolic (mm Hg) 2018-03-03 20:30:00 eCW : [facility] Systolic (mm Hg) 2018-03-03 20:30:00 [facility]: [facility] Weight 2017-02-20 16:00:00 eCW: [facility] Height 2017-02-20 16:00:00 eCW: [facility] Diastolic (mm Hg) 2017-02-20 16:00:00 eCW : [facility] Systolic (mm Hg) 2017-02-20 16:00:00 e[facility]: [facility] Weight 2015-12-13 19:45:00 eCW: [facility] Height 2015-12-13 19:45:00 eCW: [facility] Diastolic (mm Hg) 2015-12-13 19:45:00 eCW : [facility] Systolic (mm Hg) 2015-12-13 19:45:00 e[facility]: [facility] Weight 2015-02-01 18:45:00 eCW: [facility] Height 2015-02-01 18:45:00 eCW: [facility] Diastolic (mm Hg) 2015-02-01 18:45:00 e[facility] : [facility] Systolic (mm Hg) 2015-02-01 18:45:00 eCW: [facility] Procedures Procedure Date / Time Performed Performing Clinician [facility] Breast augmentation 2015-08-05 06:00:[address] [place] Uterine fibroidectomy 2014-08-05 06:00:[address] [place] Plan of Care Planned Activity Planned Date Details Comments Source Future Scheduled Test 2020-03-05 00:00:00 INFLUENZA VACCINE [code = INFLUENZA VACCINE] Alan Rodríguez Future Scheduled Test 1995 00:00:00 Screening for geovanna gnant neoplasm of cervix (procedure) [code = 883144230] Alan palomino Encounters Start Date/Time End Date/Time Encounter Type Admission Type [facility] Emergency Department Facility Care Department Encounter ID Source 2019-08-24 14:20:00 2019-08-25 05:59:00 Outpt Diag Services [facility] Outpatient [facility] - [place] [id number] TORRES Rodriguez rosa 2019-08-24 08:20:00 2019-08-24 23:59:00 Outpatient Mynor Jovel [id number] 2019-04-20 11:15:00 2019-04-20 11:15:00 Outpatient Ann Wells MD [id number] [employer] 2019-02-18 15:33:00 2019-02-19 04:59:00 Outpatient [facility] [id number] [facility] 2019-02-18 10:33:00 2019-02-18 23:59:00 Outpatient [facility] [id number] 2019-02-18 10:33:00 2019-02-18 10:33:00 Outpatient [facility] [id number] [facility] 2018-05-22 09:44:00 2018-05-22 09:44:00 Outpatient ANN WELLS [place] NW [id number] [employer] 2018-05-19 15:30:00 2018-05-19 15:30:00 Outpatient ANN WELLS MD [place] MD NW [id number] [facility] 2018-05-10 18:20:00 2018-05-10 22:03:00 Emergency [facility] [id number] [facility] 2018-05-10 13:20:00 2018-05-10 17:03:00 Outpatient Travis Laguerre [facility] [id number] 2018-03-17 08:45:00 2018-03-17 08:45:00 Outpatient ANN WELLS MD [place] NW [id number] [facility] 2018-03-03 15:30:00 2018-03-03 15:30:00 Outpatient ANN WELLS MD [place] NW [id number] [facility] 2017-04-11 13:52:00 2017-04-12 04:59:00 Outpatient [facility] [id number] [facility] 2017-04-11 08:52:00 2017-04-11 23:59:00 Outpatient Christy Costa [facility] [id number] 2017-02-20 11:00:00 2017-02-20 11:00:00 Outpatient ANN WELLS MD NW [place]S MD NW [id number] [employer] 2015-12-13 20:55:00 2015-12-14 04:59:[address] [facility] [id number] [facility] 2015-12-13 15:55:00 2015-12-13 23:59:00 Outpatient Sa alexis Wells [facility] [id number] 2015-12-13 19:45:00 2015-12-13 19:45:00 SEVERE BACK PAIN [facility] [id number] eCW: [facility] 2015-12-13 14:45:00 2015-12-13 14:45:00 Outpatient [facility] [id number] [employer] 2015-02-02 20:28:00 2015-02-02 20:28:00 Unknown [facility] [id number] eCW: [facility] 2015-02-02 20:28:00 2015-02-02 20:28:00 Unknown [facility] [id number] eCW: [facility] 2015-02-02 20:28:00 2015-02-02 20:28:00 Unknown [facility] [id number] eCW: [facility] 2015-02-02 15:28:00 2015-02-02 15:28:00 Outpatient [facility] [id number] [employer] 2015-02-01 18:45:00 2015-02-01 18:45:00 LUMP ON NECK FOR 3 DAYS--PAIN FUL [facility] [id number] eCW: [facility] 2015-02-01 18:45:00 2015-02-01 18:45:00 LUMP ON NECK FOR 3 DAYS--PAIN FUL [facility] [id number] eCW: [facility] 2015-02-01 18:45:00 2015-02-01 18:45:00 LUMP ON NECK FOR 3 DAYS--PAIN FUL [facility] [id number] eCW: [facility] 2015-02-01 13:45:00 2015-02-01 13:45:00 Outpatient [facility] [id number] [employer] 2014-09-03 21:14:00 2014-09-04 05:59:00 Outpatient [facility] [id number] [facility] 2014-09-03 15:14:00 2014-09-03 23:59:00 [id number] Results Test Description Test Time Test Comments Results Result Comments Source ELECTROLYTES 2018-05-10 18:50:00 15.4 [facility] ELECTROLYTES 2018-05-10 18:50:00 90 [facility] ELECTROLYTES 2018-05-10 18:50:00 0.80 [facility] ELECTROLYTES 2018-05-10 18:50:00 9.6 [facility] ELECTROLYTES 2018-05-10 18:50:00 142 [facility] ELECTROLYTES 2018-05-10 18:50:00 24 [facility] ELECTROLYTES 2018-05-10 18:50:00 106 [facility] ELECTROLYTES 2018-05-10 18:50:00 3.4 [facility] ELECTROLYTES 2018-05-10 18:50:00 10 [facility] ELECTROLYTES 2018-05-10 18:50:00 156 [facility] HEMATOLOGY 2018-05-10 18:50:00 Test Item MCH (test code = MCH) 28.6 pg 27.0-31.0 [id number] 18:50:[facility].4[facility] [facility] 2018-05-10 18:50:0034.[address] [place], [place] [address]JgxcRQDTUSLPPM2833-19-23 18:50:0011.[address] [place], [place] [address]VymoZIGHSZPCGA4727-66-50 18:50:72814CT[facility]AT[facility] 2018-05-10 18:50:005.23[facility] CenterXyycYZQPIXWOQA7961-01-01 18:50:0014.[address] [place], [place] [address]QfteSUIXPIOBWW8420-56-47 18:50:0082.[address] [place], [place] [address]HEMATOLOGY 2018-05-10 18:50:0043.[address] [place], [place] [address]DdrdQDPINITQVM0478-50-15 18:50:006.6[facility]
--- OUTSIDE RECORDS SUMMARY | 2019-12-28 00:12 | XMS REPORT ---
Author Author Katja Hinson Organization eClinical[employer] Address Unknown Phone Unavailable Care Team Providers Care Label Drier Name Role Phone Myah Hinson Unavailable Encounters Encounter Location Date LUMP ON NECK FOR 3 DAYS--PAINFUL [facility] February 01, 2015 Unknown [facility] February 02, 2015 Problems Problem Type Condition ICD-9 Code Onset Dates Condition Statu s Problem Allergic rhinitis, cause unspecified 477.9 Active Problem hypertriglyceridemia 272.1 Active Problem Hypertension 401.1 Active Assessment lymphadenopathy 785.6 Active Problem Constipation 564.00 Active Problem hepatatis A 070.1 Active Problem lymphadenopathy 785.6 Active Problem Abnormal liver enzymes 790.5 Activ e Problem Overweight 278.02 Active Problem hypercholesterolemia 272.0 Active Problem Irregular menstrual cycle 626.4 Ac tive Problem BMI 30.0-30.9,adult V85.30 Active Medications Medication Code System Code Instructions Start Date End Date Status Dosage Keflex MEDISPAN [address]-63 500 MG Orally Twice a day JanuaryFebruary 13, 2015 Active 1 capsule Social History Social History Element Qualifiers Date Reported Exercisie . Do you exercise? Yes, Type of exercis e? Walking February 01, 2015 Sexual Activity . Yes February 01, 2015 Smoking no. Are you a: Never Smoker February 01 Drug Use no. Do you use recreational drugs? No J 2014 Diet . Are you on a diet? No February 01, 2015 Caffeine no. Do you drink caffeine? No February 01, 2015 Alcohol yes. Do you drink alcohol? Yes February 01, 2015 Marital Status . February 01, 2015 Employment . Employed February 01, 2015 Summary Purpose eClinicalWorks Submission
--- OUTSIDE RECORDS SUMMARY | 2019-12-28 00:12 | XMS REPORT ---
Author Author Katja Hinson Organization [employer] Address Unknown Phone Unavailable Care Team Providers Care Banquet Kitchen Supervisor Name Role Phone Myah Hinson Unavailable Allergies, Adverse Reactions, Alerts Substance Reaction Event Type N.K.D.A. Info Not Available Non Drug Allergy Encounters Encounter Location Date LUMP ON NECK FOR 3 DAYS--PAINFUL [facility] February 01, 2015 Unknown [facility] February 02, 2015 Problems Problem Type Condition ICD-9 Code Onset Dates Condition Statu s Problem Allergic rhinitis, cause unspecified 477.9 Active Problem hypertriglyceridemia 272.1 Active Problem Hypertension 401.1 Active Problem hepatatis A 070.1 Active Problem lymphadenopathy 785.6 Active Problem Abnormal liver enzymes 790.5 Activ e Problem Overweight 278.02 Active Problem hypercholesterolemia 272.0 Active Problem Irregular menstrual cycle 626.4 Ac tive Problem BMI 30.0-30.9,adult V85.30 Active Assessment BMI 30.0-30.9,adult V85.30 Active Assessment Irregular menstrual cycle 626.4 Ac tive Assessment lymphadenopathy 785.6 Active Assessment Overweight 278.02 Active Problem Constipation 564.00 Active Medications Medication Code System Code Instructions Start Date End Date Status Dosage Keflex MEDISPAN [address]-19 500 MG Orally Twice a day JanuaryFebruary 11, 2015 Active 1 capsule Flonase MEDISPAN [address]-67 50 MCG/ACT Nasally Once a day Jul Active 1 spray in each nostril Social History Social History Element Qualifiers Date Reported Exercisie . Do you exercise? Yes, Type of exercis e? Walking February 01, 2015 Sexual Activity . Yes February 01, 2015 Smoking no. Are you a: Never Smoker February 01 15 Drug Use no. Do you use recreational drugs? No J 2014 Diet . Are you on a diet? No February 01, 2015 Caffeine no. Do you drink caffeine? No February 01, 2015 Alcohol yes. Do you drink alcohol? Yes February 01, 2015 Marital Status . February 01, 2015 Employment . Employed February 01, 2015 Vital Signs Date/Time: February 01, 2015 Weight 165 lbs Height 62 in Blood Pressure Diastolic 82 mm Hg Blood Pressure Systolic 124 mm Hg Summary Purpose eClinicalWorks Submission
--- OUTSIDE RECORDS SUMMARY | 2019-12-28 00:12 | XMS REPORT ---
Author Author Katja Hinson Organization e[employer] Address Unknown Phone Unavailable Care Team Providers Care Steward/Stewardess Tourist Class Name Role Phone Myah Hinson CP Unavailable Allergies, Adverse Reactions, Alerts Substance Reaction Event Type N.K.D.A. Info Not Available Non Drug Allergy Problems Problem Type Condition Code Onset Dates Condition Statu s Problem PCOS (polycystic ovarian syndrome) E28.2 Active Problem Alopecia areata L63.9 Active Problem Lumbago M54.5 Active Problem Body mass index 30.0-30.9, adult Z68.30 Active Assessment Pain in right foot M79.671 Active Problem Obesity (BMI 30.0-34.9) E66.9 Acti ve Assessment Pain of left foot M79.672 Active Assessment Eczema, unspecified type L30.9 Act angelica Problem Body mass index 32.0-32.9, adult Z68.32 Active Problem Type 2 diabetes mellitus wit hout complication, without long-term current use of insulin E11.9 Active Problem Thoracic radiculopathy due to degenerati ve joint disease of spine M47.24 Active Problem Amenorrhea N91.2 Active Problem Cervical radiculopathy due to degenerati ve joint disease of spine M47.22 Active Assessment Type 2 diabetes mellitus wit hout complication, without long-term current use of insulin E11.9 Active Assessment Metabolic syndrome E88.81 Active Assessment Body mass index 32.0-32.9, adult Z68.32 Active Assessment Obesity (BMI 30.0-34.9) E66.9 Acti ve Assessment Amenorrhea N91.2 Active Assessment PCOS (polycystic ovarian syndrome) E28.2 Active Assessment Alopecia areata L63.9 Active Problem Metabolic syndrome E88.81 Active Assessment Insulin resistance E88.81 Active Problem Insulin resistance E88.81 Active Medications Medication Code System Code Instructions Start Date End Date Status Dosage Flonase [facility] 61108165571 50 MCG/ACT Nasally Once a day Jul 20, 2013 Active 1 spray in each nostril Clobetasol Propionate [facility] 61604459939 0.05 % Externally T wice a day March 03, 2018 Mar 23, 2018 Active 1 application to aff ected area Vitamin D-[address] [facility] 63780459200 1000 UNIT Orally Once a day Active 1 capsule Metformin HCl [facility] 97866619952 1000 MG Orally Twice a day Active 1 tablet with meals Vital Signs Date/Time: March 03, 2018 BMI 32.74 Index Weight 179 lbs Height 62 in Pulse 78 /min Blood Pressure Diastolic 88 mm Hg Blood Pressure Systolic 126 mm Hg Results No Known Results Summary Purpose eClinicalWorks Submission
--- OUTSIDE RECORDS SUMMARY | 2019-12-28 00:12 | XMS REPORT | Summary of Care ---
Author Author [facility] Organization [facility] Address Unknown Phone Unavailable Encounter HQ Encntr_alineha(FIN) [id number] Date(s): 12/13/15 - 12/13/15 [facility] [address] [place] [address]- Discharge Disposition: Home Attending Physician: Myah Hinson MD Vital Signs No data available for this section Problem List No data available for this section Allergies, Adverse Reactions, Alerts No data available for this section Medications No data available for this section Results No data available for this section Immunizations No data available for this section Procedures No data available for this section Social History No data available for this section Assessment and Plan No data available for this section
--- OUTSIDE RECORDS SUMMARY | 2019-12-28 00:12 | XMS REPORT | Summary of Care ---
Author Author [facility] Organization [facility] Address Unknown Phone Unavailable Encounter HQ Encntr_alias(FESTUS) [id number] Date(s): 04/11/17 - 04/11/17 [facility] [address] [place] [address]- Discharge Disposition: Home or Self Care Attending Physician: Christy Leon MD Referring Physician: Chery Coffman MD Vital Signs No data available for [...]
--- OUTSIDE RECORDS SUMMARY | 2019-12-28 00:12 | XMS REPORT | Summary of Care ---
Author Author [facility] Organization [facility] Address Unknown Phone Unavailable Encounter RYANN Courtney(FESTUS) [id number] Date(s): 05/10/18 - 05/10/18 [id number] [place] [address]- Encounter Diagnosis Hypertension (Discharge Diagnosis) - 05/10/18 Acute headache (Discharge Diagnosis) - 05/10/18 Essential (primary) hypertension (Final) - 05/14/18 Cervicalgia (Final) - Dorsalgia, unspecified (Final) - Anxiety disorder, unspecified (Final) - Discharge Disposition: Home or Self Care Attending Physician: Travis Loja DO Vital Signs 1 2 3 Most recent to oldest [Reference Range]: 157.48 cm (05/10/18 1:23 PM) Height 98.3 DegF (05/10/18 5:02 PM) 98.2 DegF (05/10/18 1:23 PM) Temperature Oral [96.4-99.1 DegF] 125/89 mmHg (05/10/18 5:02 PM) 155/103 mmHg *HI* (05/10/18 4:20 PM) 161/98 mmHg *HI* (05/10/18 3:24 PM) Blood Pressure [90-140/60-90 mmHg] 18 BRMIN (05/10/18 1:23 PM) Respiratory Rate [14-20 BRMIN] 86 bpm (05/10/18 5:02 PM) 103 bpm *HI* (05/10/18 2:17 PM) 116 bpm *HI* (05/10/18 1:23 PM) Peripheral Pulse Rate [60-100 bpm] 77.727 kg (05/10/18 1:23 PM) Weight 31.34 m2 (05/10/18 1:23 PM) Body Mass Index Problem List No data available for this section Allergies, Adverse Reactions, Alerts Substance Reaction Severity Status NKDA Active Medications acetaminophen 975 mg, Route: PO, Drug form: TAB, ONCE, Dosing Weight 77.727, kg, Priority: NOÉ Plummer, Start date: 05/10/18 13:41:00 CDT, Stop date: 05/10/18 13:41:00 CDT Start Date: 05/10/18 Stop Date: 05/10/18 Status: Completed Benadryl 25 mg, Route: IVP, ONCE, Dosing Weight 77.727, kg, Priority: STAT, Start date: 1 14:53:00 CDT, Stop date: 05/10/18 14:53:00 CDT Start Date: 05/10/18 Stop Date: 05/10/18 Status: Completed cloNIDine 0.1 mg oral tablet 0.1 mg, Route: PO, Drug form: TAB, ONCE, Dosing Weight 77.727, kg, Priority: NOÉ Plummer, Start date: 05/10/18 13:41:00 CDT, Stop date: 05/10/18 13:41:00 CDT Start Date: 05/10/18 Stop Date: 05/10/18 Status: Completed hydrochlorothiazide-lisinopril 12.5 mg-10 mg oral tablet 1 tab, PO, Daily, # 30 tab, 0 Refill(s) Start Date: 05/10/18 Status: Ordered ketOROLAC 30 mg, Route: IVP, Drug form: INJ, ONCE, Dosing Weight 77.727, kg, Priority: STA Kavitha, Start date: 05/10/18 14:53:00 CDT, Stop date: 05/10/18 14:53:00 CDT Start Date: 05/10/18 Stop Date: 05/10/18 Status: Completed Results ELECTROLYTES Most recent to 1 oldest [Reference Range]: Sodium Lvl [135-145 142 mEq/L mEq/L] (05/10/18 1:50 PM) Potassium Lvl 3.4 mEq/L [3.5-5.1 mEq/L] *LOW* (05/10/18 1:50 PM) Chloride Lvl [95-109 106 mEq/L mEq/L] (05/10/18 1:50 PM) CO2 [24-32 mEq/L] 24 mEq/L (05/10/18 1:50 PM) AGAP [10.0-20.0 15.4 mEq/L mEq/L] (05/10/18 1:50 PM) CHEM PANEL Most recent to 1 oldest [Reference Range]: Creatinine Lvl 0.80 mg/dL [0.50-1.40 mg/dL] (05/10/18 1:50 PM) eGFR 90 mL/min/1.73m2 1 *NA* (05/10/18 1:50 PM) BUN [7-22 mg/dL] 10 mg/dL (05/10/18 1:50 PM) Glucose Lvl [70-99 156 mg/dL mg/dL] *HI* (05/10/18 1:50 PM) Calcium Lvl 9.6 mg/dL [8.5-10.5 mg/dL] (05/10/18 1:50 PM) 1Result Comment: The eGFR is calculated using the [...] from the National Kidney Disease Education Program ( NKDEP) which additionally recommends that when the eGFR is used in patients with extremes of body mass index for purposes of drug dosing, the eGFR should be mul tiplied by the estimated BMI. HEMATOLOGY Most recent to 1 oldest [Reference Range]: WBC [3.7-10.4 K/CMM] 6.6 K/CMM (05/10/18 1:50 PM) RBC [4.20-5.40 5.23 M/CMM M/CMM] (05/10/18 1:50 PM) Hgb [12.0-16.0 g/dL] 14.9 g/dL (05/10/18 1:50 PM) Hct [36.0-48.0 %] 43.2 % (05/10/18 1:50 PM) MCV [80.0-98.0 fL] 82.6 fL (05/10/18 1:50 PM) MCH [27.0-31.0 pg] 28.6 pg (05/10/18 1:50 PM) MCHC [32.0-36.0 34.6 g/dL g/dL] (05/10/18 1:50 PM) RDW [11.5-14.5 %] 13.4 % (05/10/18 1:50 PM) MPV [7.4-10.4 fL] 11.1 fL *HI* (05/10/18 1:50 PM) Platelet [133-450 220 K/CMM K/CMM] (05/10/18 1:50 PM) Immunizations No data available for this section Procedures Procedure Date Related Diagnosis Body Site Status Breast augmentation 08/05/15 Completed Uterine fibroidectomy 08/05/14 Completed Social History Social History Type Response Alcohol Current, Type Beer, Wine, L [place]quor. Frequency: 1-2 times per month. Smoking Status Never smoker; Exposure to T obacco Smoke None; Cigarette Smoking Last 365 Days No; Reg Smoking Cessation Counseli ng No entered on: 05/10/18 Assessment and Plan No data available for this section
--- OUTSIDE RECORDS SUMMARY | 2019-12-28 00:12 | XMS REPORT | Summary of Care ---
Author Author [facility] Outpatient [facility] Organization [facility] Outpatient [facility] Address Unknown Phone Unavailable Care Team Providers Care Director Of Operations Name Role Phone Myah Hinson PCP Encounter HQ Imanir_ileana(FIN) [id number] Date(s): 08/24/19 - 08/24/19 [id number] [place] [address]- [phone] Discharge Disposition: Home or Self Care Attending Physician: Mynor Jovel MD Referring Physician: Mynor Jovel MD Vital Signs No data available for this section Problem List No data available for this section Allergies, Adverse Reactions, Alerts No Known Medication Allergies Medications No data available for this section [...]
--- OUTSIDE RECORDS SUMMARY | 2019-12-28 00:12 | XMS REPORT ---
Author Author Katja Hinson Organization eClinicalWorks Address Unknown Phone Unavailable Care Team Providers Care Equipment Monitor Phototypesetting Name Role Phone Myah Hinson Unavailable Allergies, Adverse Reactions, Alerts Substance Reaction Event Type N.K.D.A. Info Not Available Non Drug Allergy Problems Problem Type Condition Code Onset Dates Condition Statu s Problem Alopecia areata L63.9 Active Problem Amenorrhea N91.2 Active Problem Thoracic radiculopathy due to degenerati ve joint disease of spine M47.24 Active Problem Hypokalemia E87.6 Active Assessment Post-menopausal Z78.0 Active Problem Essential (primary) hypertension I10 Active Assessment Hypokalemia E87.6 Active Problem Palpitation R00.2 Active Problem Body mass index 30.0-30.9, adult Z68.30 Active Problem Obesity (BMI 30.0-34.9) E66.9 Acti ve Problem Post-menopausal Z78.0 Active Problem Body mass index 32.0-32.9, adult Z68.32 Active Assessment Palpitation R00.2 Active Assessment Hospital discharge follow-up Z09 Active Assessment Metabolic syndrome E88.81 Active Assessment Essential (primary) hypertension I10 Active Problem PCOS (polycystic ovarian syndrome) E28.2 Active Problem Lumbago M54.5 Active Problem Metabolic syndrome E88.81 Active Problem Type 2 diabetes mellitus wit hout complication, without long-term current use of insulin E11.9 Active Problem Insulin resistance E88.81 Active Problem Cervical radiculopathy due to degenerati ve joint disease of spine M47.22 Active Medications Medication Code System Code Instructions Start Date End Date Status Dosage Metformin HCl [facility] 76411739358 1000 MG Orally Twice a day Active 1 tablet with meals Vitamin D-3 [facility] 08726014750 1000 UNIT Orally Once a day Active 1 capsule Lisinopril-Hydrochlorothiazide [facility] 86928143373 10-12.5 MG Orally Once a day Active 1 tablet Aspir-81 [facility] 67096328321 81 MG Orally Once a day Act angelica 1 tablet Flonase [facility] 15006180727 50 MCG/ACT Nasally Once a day Jul 20, 2013 Active 1 spray in each nostril Vital Signs Date/Time: May 19, 2018 BMI 32.19 Index Weight 176 lbs Height 62 in Pulse 70 /min Blood Pressure Diastolic 68 mm Hg Blood Pressure Systolic 110 mm Hg Results Name Result Date Reference Range Unit Abnormali ty Flag EKG with interpretation Summary Purpose eClinicalWorks Submission
--- OUTSIDE RECORDS SUMMARY | 2019-12-28 00:12 | XMS REPORT | Summary of Care ---
Author Author [facility] Organization [facility] Address Unknown Phone Unavailable Encounter RYANN Courtney(FESTUS) [id number] Date(s): 02/18/19 - 02/18/19 [facility] [address] [place] [address]- Discharge Disposition: Home or Self Care Attending Physician: Christy Silva MD Referring Physician: Christy Silva MD Vital Signs No data available for [...]
[2019-12-28] MEDS ORDERED: SODIUM CHLORIDE 0.9% 1000ML 1,000 ML IV STA (00:47)
[2019-12-28] MEDS ORDERED: ONDANSETRON HCL INJ 2MG/ML 2ML 2 MG/ML VIAL IV STA (00:47)
[2019-12-28] MEDS ORDERED: KETOROLAC TROMETHAMINE 30 MG/ML VIAL IV STA (00:47)
[2019-12-28] MEDS ORDERED: DONNATAL/LIDOCAINE/MAALOX 30 ML SUSP PO STA (00:51)
[2019-12-28] MEDS ORDERED: SODIUM CHLORIDE FLUSH 10 ML SYR INJ PRN (01:00)
[2019-12-28] MEDS ORDERED: LIDOCAINE VISC 2% SOLN 15 ML UDC ONE (01:29)
[2019-12-28] MEDS ORDERED: BELLADONNA ALK/PHENOBARBITAL 5 ML UDC ONE (01:29)
[2019-12-28] MEDS ORDERED: MAGNESIUM/ALUMINUM/SIMETHICONE 30 ML UDC ONE (01:30)
[2019-12-28] MEDS ORDERED: SODIUM CHLORIDE 0.9% 1000ML 1,000 ML ONE (01:30)
--- NOTE | 2019-12-28 02:15 | Emergency Department Note ---
History of Present Illnes History of Present Illness Chief Complaint: buq pain History of Present Illness This is a 44 year old female. was doing well until 1 day ago then buq pain radiating to the back. + same as her gallstone abdominal pain. Historian: Patient Arrival Mode: Car History limited by: condition of the patient (normal) Manager Agency Required: No Onset (how long ago): day(s) (1) Location: buq Quality: sharp Radiation: back Severity: moderate Onset quality: gradual Duration (how long): day(s) (1) Timing of current episode: constant Progression: worsening Chronicity: recurrent Context: recent illness, recent surgery, recent immobilization, recent travel, trauma/injury, new medications, hx of DVT/PE, non-compliance w/ medications Relieving factors: none Exacerbating factors: eating Associated symptoms: loss of appetite, nausea/vomiting, other (diarrhea) Treatments prior to arrival: none Past Medical/Family History Physician Review I have reviewed the patient's past medical and family history. Any updates have been documented here. Past Medical History Recent Fever: No Clinical Suspicion of Infectio: No New/Unexplained Change in Ment: No Past Medical History: Hypertension, Diabetes Other Medical History: FIBROID REMOVAL, AUGMENTATION AND LIPO SUCTION Other Surgery: FIBROID REMOVAL, AUGMENTATION AND LIPO Social History Smoking Cessation: Never Smoker Alcohol Use: Occasional Any Illegal Drug Use: No TB Exposure/Symptoms: No Physically hurt or threatened: No Other Any Pre-Existing Lines (PICC,: No Is patient up to date on immun: No Last Flu: NONE Last Pneumovax: NA Review of Systems Review of Systems Constitutional: no symptoms EENTM: no symptoms Cardiovascular: no symptoms Respiratory: no symptoms Gastrointestinal: as per HPI, abdominal pain, diarrhea, nausea, vomiting Genitourinary: no symptoms Musculoskeletal: no symptoms Neurological: no symptoms Psychological: no symptoms Endocrine: no symptoms Hematological/Lymphatic: no symptoms Review of other systems All other systems reviewed and negative. Physical Exam Related Data Allergies: Coded Allergies: No Known Allergies (Unverified , 12/28/19) Triage Vital Signs Vital Signs Date Time Temp Pulse Resp B/P (MAP) Pulse Ox O2 Delivery O2 Flow Rate FiO2 12/28/19 00:25 97.7 18 18 180/92 98 Vital signs reviewed: Yes Physical Exam CONSTITUTIONAL Constitutional: well-developed, well-nourished HENT HENT: normocephalic, atraumatic, oropharynx clear/moist, nose normal HENT L/R: left ext ear normal, right ext ear normal EYES Eyes: PERRL, conjunctivae normal NECK Neck: ROM normal PULMONARY Pulmonary: effort normal, breath sounds normal CARDIOVASCULAR Cardiovascular: regular rhythm, heart sounds normal, capillary refill normal, normal rate GASTROINTESTINAL Abdominal: soft, bowel sounds normal, tender (buq), guarding GENITOURINARY Genitourinary: exam deferred SKIN Skin: warm, dry MUSCULOSKELETAL Musculoskeletal: ROM normal NEUROLOGICAL Neurological: alert, oriented x 3, no gross motor or sensory deficits PSYCHOLOGICAL Psychological: mood/affect normal, judgement normal Results Laboratory Lab results reviewed: Yes (cbc/cmp/lfts/ua all normal except [id number] and trace ketones) Imaging Imaging results reviewed: Yes (ct abd/pelvis= +cholelithiasis) Critical Care Time Subsequent provider I assumed direction of critical care for this patient from another provider of my specialty. Assessment & Plan Assessment & Plan Final Impression: (1) Biliary colic (2) Cholelithiasis Assessment & Plan rx zofran, ketorolac, tramadol, cipro, flagyl, f/u with general surgeon Depart Disposition: HOME, SELF-CARE Last Vital Signs Date Time Temp Pulse Resp B/P (MAP) Pulse Ox O2 Delivery O2 Flow Rate FiO2 12/28/19 00:25 97.7 18 18 180/92 98 Medications in the ED Sodium Chloride 10 ml PRN PRN INJ IV SITE FLUSH Last administered on 12/28/19at 01:18; Admin Dose 10 ML; Start 12/28/19 at 01:00; Stop 01/27/20 at 00:59; Status UNV Ondansetron HCl 8 mg NOW STAT IV Last administered on 12/28/19at 01:34; Admin Dose 8 MG; Start 12/28/19 at 00:47; Stop 12/28/19 at 00:48; Status UNV Ketorolac Tromethamine 30 mg ONCE STAT IV Last administered on 12/28/19at 01:36; Admin Dose 30 MG; Start 12/28/19 at 00:47; Stop 12/28/19 at 00:48; Status UNV Sodium Chloride 1,000 ml @ 1,000 mls/hr Q1H STAT IV Last administered on 12/28/19at 01:34; Admin Dose 1,000 MLS/HR; Start 12/28/19 at 00:47; Stop 12/28/19 at 01:46; Status DC Belladonna Alkaloids/ Phenobarbital 30 ml ONCE STAT PO Last administered on 12/28/19at 01:28; Admin Dose 30 ML; Start 12/28/19 at 00:51; Stop 12/28/19 at 00:52; Status UNV Lidocaine HCl 15 ml STK-MED ONCE .ROUTE ; Start 12/28/19 at 01:29; Stop 12/28/19 at 01:25; Status DC Belladonna Alkaloids/ Phenobarbital 5 ml STK-MED ONCE .ROUTE ; Start 12/28/19 at 01:29; Stop 12/28/19 at 01:25; Status DC Magnesium Aluminum Silicate 30 ml STK-MED ONCE .ROUTE ; Start 12/28/19 at 01:30; Stop 12/28/19 at 01:25; Status DC Sodium Chloride 1,000 ml @ ud STK-MED ONCE .ROUTE ; Start 12/28/19 at 01:30; Stop 12/28/19 at 01:25; Status DC CHRISTI DUPONT December 28, 2019 02:15
[2019-12-28] MEDS ORDERED: SODIUM CHLORIDE 0.9% 50ML 50 ML ONE (02:44)
[2019-12-28] MEDS ORDERED: IOPAMIDOL 370 MG/ML 200 ML INFUS..BTL INJ ONE (02:45)
--- NOTE | 2019-12-28 03:19 | NUR ---
AWAITING CT RESULTS.
--- NOTE | 2019-12-28 04:05 | Diagnostic Imaging Report ---
EXAM: CT Abdomen and Pelvis WITH contrast INDICATION: Abdominal Pain COMPARISON: None. TECHNIQUE: Abdomen and pelvis were scanned utilizing a multidetector helical scanner from the lung base to the pubic symphysis after administration of IV contrast. Coronal and sagittal reformations were obtained. Routine protocol was performed. Scan was performed during portal venous phase. IV CONTRAST: 100 cc Isovue 370 ORAL CONTRAST: None COMPLICATIONS: None RADIATION DOSE: Total DLP: 790.6 mGy*cm Estimated effective dose: (DLP x 0.015 x size factor) mSv CTDIvol has been reviewed. It is below the limits set by the Radiation Protocol Committee (RPC). FINDINGS: LINES and TUBES: None. LOWER THORAX: Unremarkable HEPATOBILIARY: Diffuse hepatic steatosis. No evidence of focal lesion. No biliary ductal dilation. GALLBLADDER: Cholelithiasis without evidence of cholecystitis. SPLEEN: No splenomegaly. PANCREAS: No focal masses or ductal dilatation. ADRENALS: No adrenal nodules KIDNEYS/URETERS: No evidence of hydronephrosis or stone. There is a 0.6 cm left upper pole renal hypodensity, too small to characterize, but likely a cyst. GI TRACT: Small hiatal hernia. No evidence of wall thickening or distension. Appendix is normal. PELVIC ORGANS/BLADDER: Unremarkable. LYMPH NODES: No lymphadenopathy. VESSELS: Unremarkable. PERITONEUM / RETROPERITONEUM: No free air or fluid. BONES AND SOFT TISSUES: No acute osseous abnormality. Bilateral breast implants. CONCLUSION: Diffuse mild hepatic steatosis. Cholelithiasis without evidence of cholecystitis. Small hiatal hernia. Signed by: Dr. Fauzia Leon MD on 12/28/2019 4:01 AM
--- NOTE | 2019-12-28 04:25 | NUR ---
INFORMED OF CT REPORT IN.
[2019-12-28] MEDS ORDERED: KETOROLAC TROME10 MG PO (04:44)
[2019-12-28] MEDS ORDERED: METRONIDAZOLE500 MG PO (04:44)
[2019-12-28] MEDS ORDERED: ONDANSETRON ODT8 MG PO (04:44)
[2019-12-28] MEDS ORDERED: CIPRO500 MG PO (04:44)
[2019-12-28] MEDS ORDERED: ULTRAM50 MG PO (04:44)
[2019-12-28 04:50] VITALS: BP 156/88
[2019-12-28] MEDS ORDERED: IMODIUM A-D2 M2 PO (04:52)
== END 2019-12-28 04:50 | disposition home or self-care (01) ==
LOC: FSED 00:09
DX: R10.11 Right upper quadrant pain (principal); R10.12 Left upper quadrant pain; R11.2 Nausea with vomiting, unspecified; K80.70 Calculus of gallbladder and bile duct without cholecystitis without obstruction; K44.9 Diaphragmatic hernia without obstruction or gangrene; K76.0 Fatty (change of) liver, not elsewhere classified
CPT/HCPCS: 74177; 80053; 80076; 81003; 85025; 96374; 96376; 99284; J1885; J2405; J7030; Q9967